=== PATIENT | male | born 1980 | race African-American/Black ===

== ENCOUNTER 2017-02-16 08:51 | Emergency (ER) | payer OTHER ==
[2017-02-16 09:40] LABS: #Basophils 0.1 thou/uL (0.0-0.2); #Eosinphils 0.4 thou/uL (0.0-0.7); #Lymphocytes 1.7 thou/uL (1.20-3.40); #Monocytes 0.4 thou/uL (0.11-0.59); #Neutrophils 1.2 thou/uL (1.40-6.50); %Basophils 1.9 % (0.0-1.0); %Eosinophils 10.4 % (0.0-10.0); %Lymphocytes 45.2 % (21.0-51.0); %Monocytes 11.4 % (0.0-10.0); Hematocrit 39.1 % (42.0-52.0); Mean Platelet Volume 8.7 fL (7.4-10.4); Red Blood Cell (RBC) Count 3.91 mill/uL (4.70-6.10); White Blood Cell (WBC) Count 3.8 thou/uL (4.8-10.8)
--- NOTE | 2017-02-16 10:01 | CT ---
CT BRAIN NONCONTRAST: HISTORY: A 36-year-old male status post head trauma. FINDINGS: There is no midline shift or any other mass effect. There is no evidence of acute intracranial hemo rrhage, large cortical infarct, obstructive hydrocephalus, or extraaxial fluid collection. The calv arium is intact. There is diffuse soft tissue swelling circumferentially of the entire scalp. IMPRESSION: 1. No acute intracranial findings. 2. Diffuse superficial soft tissue edema of the entire scalp. phill Huang POS: AGA
[2017-02-16 10:03] LABS: ALT (SGPT) 8 U/L (8-55); AST (SGOT) 15 U/L (5-34); Alkaline Phosphatase 68 U/L (40-150); Anion Gap 13 mmol/L (10-20); BUN (Urea Nitrogen) 10 mg/dL (8.9-20.6); Bilirubin, Total 0.6 mg/dL (0.2-1.2); Calc. Creatinine Clearance 0 mL/min (70-130); Carbon Dioxide 25 mmol/L (22-29); Chloride 106 mmol/L (98-107); Estimated GFR-MDRD Greater than 90; Globulin 3.4 g/dL (2.4-3.5)
--- NOTE | 2017-02-16 10:07 | CT ---
CT MAXILLOFACIAL NONCONTRAST: HISTORY: A 81-year-old male status post acute facial trauma. FINDINGS: There is diffuse soft tissue edema throughout the entire face. There is no intraorbital edema, willie alton, or gas. There are no air fluid levels in the paranasal sinuses, middle ear cavities, or masto id antra. There is a small mucous retention cyst at the floor of the left maxillary sinus. There i s minimal mucosal thickening lining the bilateral maxillary sinuses. Otherwise, the paranasal sinus es are clear. There is mild deformity of the nasal bones representing a fracture, but the age is in determinate, slightly favored to be old. Otherwise, no acute fracture is identified. There is an u nerupted, impacted, transversely and obliquely oriented tooth embedded within the left anterior maxi lla. There is a well-circumscribed, 12 mm hyperdense mass embedded in the bone of the left anterior mandible. It is uncertain whether or not this is another unerupted tooth. There is mild indentati on of the anterior wall of the right maxillary sinus which is probably an old fracture. IMPRESSION: 1. Diffuse soft tissue edema throughout the face. 2. Old fracture deformities of the anterior wall of the right maxillary sinus and nasal bones. 3. No definite acute fracture identified. 4. Unerupted teeth. POS: TOMMY
--- NOTE | 2017-02-16 10:50 | RAD ---
LEFT KNEE 4 VIEWS: HISTORY: Knee pain status post fall. FINDINGS: There are some minimal arthritic changes present. There is no significant joint space narrowing. T here are no signs of fracture or joint effusion. IMPRESSION: No acute injury. POS: AGA
[2017-02-16] MEDS ORDERED: HYDROcodone/Acetaminophen 5/325 mg Tablet ONE (11:16)
--- NOTE | 2017-02-16 11:24 | RAD ---
LEFT ELBOW 4 VIEWS: HISTORY: The patient is status post fall. FINDINGS: There is a prominent spur involving the olecranon. There are no signs of fracture, dislocation, or joint effusion. IMPRESSION: No evidence of fracture. POS: TOMMY
--- NOTE | 2017-02-16 13:51 | RAD ---
LUMBAR SPINE 2 VIEWS: Date: 02/16/17 HISTORY: Injury, fall, back pain. FINDINGS/IMPRESSION: An AP view has not been obtained. The lateral views demonstrate normal heights of the vertebral bodies. No compression fracture or sub luxation is identified. POS: AGA
== END 2017-02-16 11:10 | disposition home or self-care (01) ==
LOC: ERS 08:51
DX: S52.022A Displaced fracture of olecranon process without intraarticular extension of left ulna, initial encounter for closed fracture (principal); S00.83XA Contusion of other part of head, initial encounter; S80.02XA Contusion of left knee, initial encounter; J45.909 Unspecified asthma, uncomplicated; F31.9 Bipolar disorder, unspecified; F20.9 Schizophrenia, unspecified; F90.9 Attention-deficit hyperactivity disorder, unspecified type; F17.210 Nicotine dependence, cigarettes, uncomplicated; W06.XXXA Fall from bed, initial encounter
CPT/HCPCS: 36415; 70450; 70486; 72100; 80053; 85025